=== PATIENT | female | born 1960 | race Caucasian/White ===

== ENCOUNTER 2022-08-08 08:57 | Day surgery (SDC) | payer OTHER ==
[~2022-08-08] VITALS: Ht 152.4 cm; Wt 83.9 kg
[2022-08-08] MEDS ORDERED: fentaNYL citrate 0.05 MG/ML VIAL ONE (10:18)
[2022-08-08] MEDS ORDERED: diphenhydrAMINE 50 MG/ML VIAL ONE (10:18)
[2022-08-08] MEDS ORDERED: LIDOCAINE 2% 100 MG/5 ML UJET TP ONE (10:19)
[2022-08-08] MEDS ORDERED: MIDAZOLAM 5 MG/5 ML VIAL ONE (10:19)
[2022-08-08] MEDS ORDERED: diphenhydrAMINE 50 MG/ML VIAL IVP ONE (13:40)
[2022-08-08] MEDS ORDERED: MIDAZOLAM 2 MG/2 ML VIAL IVP ONE (13:40)
[2022-08-08] MEDS ORDERED: fentaNYL citrate 0.05 MG/ML VIAL IVP ONE ×2 (13:40→13:50)
== END 2022-08-08 12:14 | disposition home or self-care (01) ==
LOC: MDS 08:57 → MMU 08:58 → MDS 12:14
PROVIDERS: ATTEND Internal Medicine Gastroenterology
DX: K62.5 Hemorrhage of anus and rectum (principal); D12.4 Benign neoplasm of descending colon; K64.8 Other hemorrhoids; D64.9 Anemia, unspecified; G47.00 Insomnia, unspecified; Z99.89 Dependence on other enabling machines and devices
CPT/HCPCS: 88305; J1200; J2250; J3010